=== PATIENT | female | born 1960 | race Caucasian/White ===

== ENCOUNTER 2020-05-15 10:43 | Outpatient (REF) | payer OTHER, SELFPAY ==
[2020-05-15 12:20] LABS: MANUAL DIFF FLAG NO
[2020-05-15 12:27] LABS: Basophils Percent Auto 0.7 % (0-2); Eosinophils Absolute Auto 0.2 X10*3/uL (0.0-0.4); Hematocrit 42.4 % (37-47); Hemoglobin 13.6 g/dl (12.0-16.0); Imm Gran Abs Auto 0.01 X10*3/uL (0.00-0.03); Imm Gran Pct Auto 0.2 % (0.0-0.4); Lymphocytes Percent Auto 33.7 % (20-40); Mean Corpuscular HGB Conc 32.1 g/dl (31.0-35.0); Mean Corpuscular Hemoglobin 29.6 pg (27.0-33.0); Mean Corpuscular Volume 92.2 fL (80-98); Mean Platelet Volume 10.7 fL (9.4-12.3); Monocytes Absolute Auto 0.4 X10*3/uL (0.1-1.2); Monocytes Percent Auto 6.7 % (2-11); Neutrophils Absolute Auto 3.3 X10*3/uL (2.0-8.3); Neutrophils Percent Auto 55.7 % (45-73); Platelet Count 199 X10*3/uL (160-400); Red Cell Distribution Width 12.4 % (11.0-16.0)
[2020-05-15 12:45] LABS: Cholesterol 222 mg/dL; HDL Cholesterol 57 mg/dL; LDL Cholesterol Calculated 139 mg/dl; Triglycerides 132 mg/dL
[2020-05-15 12:58] LABS: Anion Gap 12 (12-20); Blood Urea Nitrogen 10 mg/dL (9-16); Carbon Dioxide 29 mmol/L (22-29); Chloride 104 mmol/L (96-108); Estimated Glomerular Filt Rate > 60; Glucose Fasting 141 mg/dL (60-99); Potassium 4.5 mmol/l (3.3-5.1); Sodium 140 mmol/L (135-145)
== END 2020-05-15 10:44 | disposition home or self-care (01) ==
LOC: HO.LAB 10:43
PROVIDERS: PCP Nurse Practitioner Family; Visit Provider Nurse Practitioner Family
DX: E13.9 Other specified diabetes mellitus without complications (principal); Z83.49 Family history of other endocrine, nutritional and metabolic diseases
CPT/HCPCS: 36415; 80048; 80061; 84443; 85025

== ENCOUNTER 2020-10-11 16:07 | Outpatient (REF) | payer OTHER, SELFPAY ==
[2020-10-11 19:39] LABS: Alanine Aminotransferase 30 U/L (0-31); Albumin Level 4.5 g/dL (3.5-5.0); Alkaline Phosphatase 87 U/L (39-117); Aspartate Amino Transferase 22 U/L (5-31); Bilirubin Direct < 0.2 mg/dL (0.0-0.5); Bilirubin Total 0.4 mg/dL (0.0-1.0); C Reactive Protein 0.33 mg/dL (< or = 0.50); Total Protein 7.9 g/dL (6.5-8.0)
[2020-10-13 13:12] LABS: Transglutaminase Ab IgG 2 U/mL; Transglutaminase IgA 1 U/mL
[2020-10-13 16:22] LABS: Gliadin Deamidated IgA Ab 4 Units; Gliadin Deamidated IgG Ab 2 Units
== END 2020-10-11 16:08 | disposition home or self-care (01) ==
LOC: HO.LAB 16:07
PROVIDERS: PCP Nurse Practitioner Family; Visit Provider Nurse Practitioner
DX: R19.7 Diarrhea, unspecified (principal); K21.9 Gastro-esophageal reflux disease without esophagitis; K64.9 Unspecified hemorrhoids; Z12.11 Encounter for screening for malignant neoplasm of colon; Z83.71 Family history of colonic polyps; Z86.16 Personal history of COVID-19; Z79.899 Other long term (current) drug therapy
CPT/HCPCS: 36415; 80076; 83516; 86140

== ENCOUNTER 2020-11-01 10:46 | Outpatient (REF) | payer OTHER, SELFPAY ==
[2020-11-01 17:32] LABS: Creatinine Urine 85.88 mg/dL; Microalbum/Creatinine Ratio Ur 6.9 ug/mg cr
[2020-11-01 17:40] LABS: Estimated Average Glucose 151 mg/dL; Hemoglobin A1c % 6.9 %
[2020-11-01 18:18] LABS: Anion Gap 12 (12-20); Blood Urea Nitrogen 15 mg/dL (9-16); Calcium 9.4 mg/dL (8.4-10.2); Carbon Dioxide 31 mmol/L (22-29); Chloride 102 mmol/L (96-108); Estimated Glomerular Filt Rate > 60; Glucose Fasting 151 mg/dL (60-99); Potassium 4.9 mmol/L (3.3-5.1); Sodium 140 mmol/L (135-145)
[2020-11-01 18:20] LABS: TSH reflex Free T4 (Prenatal) 1.48 uIU/mL (0.32-4.0)
== END 2020-11-01 10:47 | disposition home or self-care (01) ==
LOC: HO.LAB 10:46
PROVIDERS: PCP Nurse Practitioner Family; Visit Provider Nurse Practitioner Family
DX: E13.9 Other specified diabetes mellitus without complications (principal); Z83.49 Family history of other endocrine, nutritional and metabolic diseases
CPT/HCPCS: 36415; 80048; 82043; 83036

== ENCOUNTER 2020-11-20 08:45 | Day surgery (SDC) | payer OTHER, SELFPAY ==
[2020-11-15 10:42] VITALS: BMI 27.1
--- NOTE | 2020-11-20 08:53 | HO.ANESPROP2 ---
[facility] Active Problems Active Problems: All Active Problems (Updated 11/15/20 @ 10:44 by Kimberly Rodriguez) Diabetes (Acute) Hemorrhoids (Acute) Family history of polyps in the colon (Acute) Anxiety and depression (Acute) Screening for colon cancer (Acute) GERD (gastroesophageal reflux disease) (Acute) Past Medical History Medical History Anxiety and depression Diabetes mellitus Family history thyroid disease in brother GERD (gastroesophageal reflux disease) History of COVID-19 Osteoporosis Screening for colon cancer Family History Family History Mother Breast cancer Father Heart problem High cholesterol Diabetes HTN (hypertension) Sister Colon polyps Surgical History Surgical History History of surgical removal of ganglion cyst History of tubal ligation Hx of colonoscopy (~2013) Social History Social History Alcohol intake: current Alcohol intake frequency: does not drink Smoking Status: Never smoker Advance Directives: No Advance Directives Information Provided: No Advance Directives on File: No Meds Allergies Allergy/AdvReac Type Severity Reaction Status Date / Time No Known Allergies Allergy Verified 11/15/20 10:45 Home Medications Medication Instructions Recorded Confirmed Last Taken Type alendronate 70 mg tablet 70 mg PO QWEEK 05/15/20 11/15/20 Unknown History cetirizine 10 mg tablet 10 mg PO DAILY 05/15/20 11/15/20 Unknown History cholecalciferol (vitamin D3) 1,250 1,250 mcg PO QWEEK 05/15/20 11/15/20 Unknown History mcg (50,000 unit) capsule metformin 500 mg tablet 500 mg PO DAILY 09/18/20 11/15/20 Unknown History diclofenac sodium 1 % topical gel g TOPICAL BID 10/11/20 10/11/20 Unknown History ketoconazole 2 % topical cream appl TOPICAL 10/11/20 10/11/20 Unknown History pantoprazole 40 mg tablet,delayed 40 mg PO BID tab 10/11/20 11/15/20 Unknown History release Exam Exam Date and Time: November 20, 2020 0853 Height,Weight and Vital Signs: Height 5 ft 2 in Weight 67.132 kg Airway Mallampati Class: II TM Dist: >3cm Neck ROM: Full Loose/Missing/Broken Teeth: No Heart: RRR Lungs: CTA Assessment and Plan Assessment Anesthesia Assessment: Anesthesia Plan Discussed and Chart Reviewed Final Anesthetic Review NPO: Yes ASA Class: II Final Preanesthetic Review: Meds/Allgs Chart Reviewed, Consent Obtained/Reviewed and Anes Risks/Benef Reviewed Patient Risk: Low Procedure Risk: Low Anesthetic Plan Anesthetic Plan: MAC: Disposition: Standard PACU
[2020-11-20 08:54] VITALS: BP 163/90; PULSE 96; RESP 16; TEMP 35.8; O2SAT 97
[2020-11-20] MEDS: Lactated Ringers 1,000 ML 50 ML IV (09:06)
--- NOTE | 2020-11-20 09:06 | W.PM.OPN ---
Operative Note Operative Note Date of Service: 11/20/20 Narrative: Pre-op diagnosis: COLON CANCER SCREENING, HISTORY OF COLON POLYPS, DIARRHEA Post-op diagnosis: other (DIVERTICULOSIS, HEMORRHOIDS) Procedure: COLONOSCOPY TILL CECUM WITH BIOPSIES Consent: Indications for the procedure and potential complications of bleeding, perforation, reaction to medications and missed diagnosis were discussed with the patient and informed consent was obtained. Instrument: Olympus PCF H 190 L variable stiffness pediatric colonoscope Monitoring: Vital signs and clinical assessment, intermittent blood pressure monitoring, continuous EKG monitoring, Pulse oximetry and Carbon Dioxide monitoring were done throughout the procedure. Colon withdrawl time was 16 minutes. Procedure: The patient was placed in the left lateral decubitis position and pre-procedure medications were administered. After a digital rectal examination of the ano-rectum, the video colonoscope was inserted into the rectum and advanced through the colon to the cecum. The colonoscope was slowly withdrawn in a retrograde panoramic fashion and the colon mucosa was carefully examined including a retroflexed view of the rectum. Findings and interventions are described below. Procedure Difficulty: Without difficulty Findings: Terminal Ileum: Not evaluated Cecum: Normal Ascending Colon: Normal Transverse Colon: Normal Descending Colon: Moderate diverticulosis Sigmoid Colon: Severe diverticulosis with luminal narrowing Rectum: Normal Ano-rectum: Moderate internal hemorrhoids Colon preparation: Good the some irrigation Impression and Post Procedure Diagnosis: Colonoscopy Findings: No polyps were detected. Random biopsies were obtained from the right and left colon Moderate to severe diverticulosis seen in the left colon Moderate hemorrhoids on retroflexed exam. Plan: Await pathology results Patient has an appointment on 12/04/20 in the [facility] with Jennie Jon NP. Repeat Colonoscopy in 5 years due to a family history of colon polyps (Her sister had colon polyps at age 60's). Above findings were reviewed with the patient and diverticulosis handout was given in the discharge area Surgeon: Tank Smith MD Anesthesia: MAC (Dr Lisa) Traffic I Manager: Griselda Jhaveri Estimated blood loss (mL): 0 Pathology: other (A: RIGHT COLON RANDOM BXS R/O MICROSCOPIC COLITIS B: LEFT COLON RANDOM BXS R/O MICROSCOPIC COLITIS) Condition: stable Disposition: PACU
--- NOTE | 2020-11-20 09:06 | MHC.SHP ---
Pre-Procedural Eval Section A The patient is an INPATIENT: No The History & Physical has been completed within 30 days and I have reviewed it.: No Section B Chief Complaint: Screening Details of Present Illness: Colon cancer screening, family history of colon polyps, diarrhea see a Relevant Family History (Specify if Yes): Yes Relevant Social History: None Present Medications: see Short Stay Collaborative assessment Medical History: Significant History (Anxiety and depression Family history thyroid disease in brother GERD (gastroesophageal reflux disease) Screening for colon cancer) History of Previous Operations: Relevant previous surgery/procedure and date(s) (Hx of colonoscopy (~2013)) Allergies: Allergies Allergy/AdvReac Type Severity Reaction Status Date / Time No Known Allergies Allergy Verified 11/15/20 10:45 Review of Systems Sugical H&P ROS: Negative: Constitution, Cardiovascular and Respiratory and Yes, Specify: Gastrointestinal (diarrhea) Exam Surgical H&P Exam: Normal: Heart, Normal: Lungs, Normal: Extremities and Normal: Abdomen Plan Diagnosis/Plan: Unchanged I have reviewed the history and physical and performed a pertinent physical examination on my patient. No changes have occurred unless specified.
[2020-11-20 09:08] LABS: Glucose, Whole Blood 140 mg/dL (60-115)
[2020-11-20 09:43] VITALS: BP 103/62; PULSE 88; RESP 18; TEMP 36.2; O2SAT 97
[2020-11-20 10:03] VITALS: BP 120/80; PULSE 87; RESP 16; TEMP 36.1; O2SAT 98
== END 2020-11-20 10:34 | disposition home or self-care (01) ==
PROVIDERS: PCP Nurse Practitioner Family; Visit Provider Internal Medicine Gastroenterology
PROC: 0DJD8ZZ Inspection of Lower Intestinal Tract, Via Natural or Artificial Opening Endoscopic (ICD-10-PCS; CPT 45378; principal; 2020-11-20 10:00)
DX: Z12.11 Encounter for screening for malignant neoplasm of colon (principal); K57.30 Diverticulosis of large intestine without perforation or abscess without bleeding; K64.8 Other hemorrhoids; K21.9 Gastro-esophageal reflux disease without esophagitis; E11.9 Type 2 diabetes mellitus without complications; Z79.84 Long term (current) use of oral hypoglycemic drugs; Z86.16 Personal history of COVID-19; Z79.899 Other long term (current) drug therapy
CPT/HCPCS: 45380; 82947; 88305

== ENCOUNTER → 2020-12-04 10:41 | Outpatient (BNVA) | payer OTHER, SELFPAY | PROVIDERS: PCP Nurse Practitioner Family; Visit Provider Nurse Practitioner ==